=== PATIENT | female | born 1990 | race Two or more races ===

== ENCOUNTER 2022-07-17 08:51 | Day surgery (SDC) | payer OTHER ==
[~2022-07-17] VITALS: Ht 162.6 cm; Wt 80.3 kg
[2022-07-17] MEDS ORDERED: fentaNYL citrate 0.05 MG/ML VIAL ONE (10:54)
[2022-07-17] MEDS ORDERED: LIDOCAINE 2% 100 MG/5 ML UJET TP ONE (10:54)
[2022-07-17] MEDS ORDERED: fentaNYL citrate 0.05 MG/ML VIAL IVP ONE (11:45)
== END 2022-07-17 12:00 | disposition home or self-care (01) ==
LOC: MDS 08:51 → MMU 08:51 → MDS 12:00
PROVIDERS: ATTEND Internal Medicine Gastroenterology
DX: K62.5 Hemorrhage of anus and rectum (principal); K59.00 Constipation, unspecified; Z79.899 Other long term (current) drug therapy
CPT/HCPCS: 45378; 81025; 87426; J3010